=== PATIENT | male | born 1970 | race Caucasian/White ===

== ENCOUNTER 2017-10-30 01:36 | Emergency (ER) | payer SELFPAY ==
[~2017-10-30] VITALS: Ht 182.9 cm; Wt 75.0 kg
[2017-10-30 01:38] VITALS: BP 121/71; PULSE 73; RESP 18; TEMP 97.6; O2SAT 100
[2017-10-30] MEDS ORDERED: AMOX500T PO (02:11)
[2017-10-30] MEDS ORDERED: AMOXICILLIN (TRIHYDRATE) 500 MG CAP PO ONE (02:15)
[2017-10-30] MEDS ORDERED: ACETAMINOPHEN/HYDROcodone 325 MG/5 MG TAB PO ONE (02:15)
--- NOTE | 2017-10-30 02:16 | PD ---
HPI Chief Complaint: Oral / Dental Pain or Problem Time Seen by Provider: 01:46 Travel History International Travel<30 days: No Contact w/Intl Traveler<30days: No Traveled to known affect area: No History of Present Illness HPI 47-year-old white male presents emergency department with complaints of right lower jaw swelling and pain. Patient states his symptoms and present for the last 2 days. Moderate intensity. No alleviating factors. No exacerbating factors. Positive headache. PFSH Past Medical History Medical History: Denies Significant Hx Diminished Hearing: No Tetanus Vaccination: < 5 Years Past Surgical History Surgical History: No Previous Surgery Social History Alcohol Use: Yes (OCC) Tobacco Use: Yes (1PPD) Substance Use: Yes (MARIJUANA) Allergies-Medications (Allergen,Severity, Reaction): Coded Allergies: No Known Allergies (Unverified , 10/30/17) Reported Meds & Prescriptions Reported Meds & Active Scripts Active Amoxicillin 500 Mg Tab 500 Mg PO TID 10 Days Review of Systems Except as stated in HPI: all other systems reviewed are Neg General / Constitutional: No: Fever Eyes: No: Visual changes HENT: Positive: Headaches, Dental Difficulties, No: Sore Throat, Ear Discharge , Earache Cardiovascular: No: Chest Pain or Discomfort Respiratory: No: Shortness of Breath Gastrointestinal: No: Abdominal Pain Genitourinary: No: Dysuria Musculoskeletal: No: Pain Skin: No Rash Neurologic: Positive: Headache, No: Weakness Psychiatric: No: Depression Endocrine: No: Polydipsia Hematologic/Lymphatic: No: Easy Bruising Physical Exam Narrative GENERAL: Well-developed, well-nourished in no acute distress. Nontoxic appearing. HEAD: Normocephalic, atraumatic. EYES: Pupils equal round and reactive. Extraocular motions intact. No scleral icterus. No injection or drainage. ENT: TMs clear without erythema. The external auditory canals clear. Nose: clear . Posterior pharynx is pink and moist. No tonsillar edema or exudate. Uvula midline. Airway patent. Patient has a dental abscess in the right lower mandible. Patient has multiple, multiple dental caries of the gumline. Mild swelling along the right mandible NECK: Trachea midline.Supple, nontender, moves head freely. No central bony tenderness or spasm. CARDIOVASCULAR: Regular rate and rhythm without murmurs, gallops, or rubs. RESPIRATORY: Clear to auscultation. Breath sounds equal bilaterally. No wheezes , rales, or rhonchi. GASTROINTESTINAL: Abdomen soft, non-tender, nondistended. No hepato-splenomegaly , or palpable masses. No guarding. EXTREMITIES: No clubbing, cyanosis, or edema. No joint tenderness, effusion, or edema noted. BACK: Nontender without deformity or crepitance. No flank tenderness. Data Data Last Documented VS Vital Signs Date Time Temp Pulse Resp B/P (MAP) Pulse Ox O2 Delivery O2 Flow Rate FiO2 10/30/17 01:38 97.6 73 18 121/71 (88) 100 Orders Orders Ed Discharge Order (10/30/17 02:10) Amoxicillin (Trimox) (10/30/17 02:15) Acetamin-Hydrocod 325-5 Mg ([place] 5-325 (10/30/17 02:15) MDM Medical Decision Making Medical Screen Exam Complete: Yes Emergency Medical Condition: Yes Medical Record Reviewed: Yes Differential Diagnosis MDM: Moderate Differential diagnoses: Dental abscess, dental caries, osteitis, cellulitis Narrative Course Patient was given Amoxil 1 g p.o. and 1 [place] 5 mg p.o. This is dental abscess Diagnosis Primary Impression: Dental abscess Patient Instructions: Narcotic given in the ED, General Instructions Additional Instructions: Rest. Saltwater gargles. [place] oil on cotton balls. Rest. Saltwater gargles. [place] oil on cotton balls. 3 Advil every 6 hours. Amoxicillin follow-up with a dentist as soon as possible. And return to the ER if any problems. Med/Other Pt SpecificInfo: Prescription(s) given Scripts Amoxicillin (Amoxicillin) 500 Mg Tab 500 MG PO TID for Infection for 10 Days, TAB 0 Refills Prov: Jj Sierra MD 10/30/17 Disposition: 01 DISCHARGE HOME Condition: Stable Erik Arrieta Oct 30, 2017 02:16
== END 2017-10-30 02:15 | disposition home or self-care (01) ==
LOC: NEPD 01:36
DX: K04.7 Periapical abscess without sinus (principal); F17.200 Nicotine dependence, unspecified, uncomplicated
CPT/HCPCS: 99283

== ENCOUNTER 2017-11-13 02:13 | Emergency (ER) | payer SELFPAY ==
[~2017-11-13] VITALS: Ht 182.9 cm; Wt 80.0 kg
[~2017-11-13 02:13] MED LIST: AMOX500T PO
[2017-11-13 02:28] VITALS: BP 121/65; PULSE 79; RESP 18; TEMP 98.1; O2SAT 98
[2017-11-13] MEDS ORDERED: PERI0.126 SWISH-SPIT (04:21)
[2017-11-13] MEDS ORDERED: IBUP1TAB7 PO (04:21)
--- NOTE | 2017-11-13 04:24 | PD ---
HPI Chief Complaint: Oral / Dental Pain or Problem Time Seen by Provider: 04:20 Travel History International Travel<30 days: No Contact w/Intl Traveler<30days: No Traveled to known affect area: No History of Present Illness HPI 47-year-old male presents for evaluation of dental pain. Symptoms started weeks ago. Pain is an aching pain which is constant, localized the left mandibular second and third molars, worse when chewing. He was seen here for evaluation of this issue on October 30 and was prescribed a 10 day course of amoxicillin which he has just completed. He continues to have pain and this is what prompted evaluation. He says that he cannot afford to see a dentist. He has no other complaints at this time. [facility] Past Medical History Medical History: Denies Significant Hx Diminished Hearing: No Tetanus Vaccination: < 5 Years Influenza Vaccination: No Social History Alcohol Use: Yes (OCC) Tobacco Use: Yes (1PPD) Substance Use: Yes (MARIJUANA) Allergies-Medications (Allergen,Severity, Reaction): Coded Allergies: No Known Allergies (Unverified , 11/13/17) Reported Meds & Prescriptions Reported Meds & Active Scripts Active Ibuprofen 800 Mg Tab 800 Mg PO Q6HR PRN Peridex Liq (Chlorhexidine Gluconate (Mouth) Liq) 0.12% Soln 15 Ml SWISH-SPIT BID Amoxicillin 500 Mg Tab 500 Mg PO TID 10 Days Review of Systems General / Constitutional: No: Fever, Chills HENT: Positive: Dental Difficulties Physical Exam Narrative GENERAL: Well-developed well-nourished male in no acute distress SKIN: Warm and dry. HEAD: Atraumatic. Normocephalic. EYES: Pupils equal and round. No scleral icterus. No injection or drainage. ENT: No nasal bleeding or discharge. Mucous membranes pink and moist. Multiple areas of dental decay most of the patient's teeth, particularly in the left mandibular second and third molars. There is no gingival edema, no facial edema, no sublingual edema, no trismus NECK: Trachea midline. No JVD. No lymphadenopathy CARDIOVASCULAR: Regular rate and rhythm. No murmur appreciated. RESPIRATORY: No accessory muscle use. Clear to auscultation. Breath sounds equal bilaterally. Data Data Last Documented VS Vital Signs Date Time Temp Pulse Resp B/P (MAP) Pulse Ox O2 Delivery O2 Flow Rate FiO2 11/13/17 02:28 98.1 79 18 121/65 (73) 98 MDM Medical Decision Making Medical Screen Exam Complete: Yes Emergency Medical Condition: Yes Medical Record Reviewed: Yes Differential Diagnosis Dental caries, pulpitis, pericoronitis, periodontal abscess Narrative Course Ultimately this patient will require most of his teeth being removed by a dentist. At this point in time the plan is to discharge him a short course of ibuprofen and Peridex. Advised follow-up with a dentist for definitive treatment. Diagnosis Primary Impression: Dental caries Additional Instructions: Medication as prescribed. Follow-up with a dentist for definitive therapy. Return for any emergent medical conditions. Med/Other Pt SpecificInfo: Prescription(s) given Scripts Ibuprofen (Ibuprofen) 800 Mg Tab 800 MG PO Q6HR Y for PAIN, #40 TAB 0 Refills Prov: Anna Prieto MD 11/13/17 Chlorhexidine Gluconate (Mouth) Liq (Peridex Liq) 0.12% Soln 15 ML SWISH-SPIT BID, #473 ML 0 Refills Prov: Anna Prieto MD 11/13/17 Disposition: 01 DISCHARGE HOME Condition: Stable Victor Manuel Brenner Nov 13, 2017 04:24
== END 2017-11-13 04:58 | disposition home or self-care (01) ==
LOC: NEPD 02:13
DX: K02.9 Dental caries, unspecified (principal); F17.200 Nicotine dependence, unspecified, uncomplicated; F12.90 Cannabis use, unspecified, uncomplicated
CPT/HCPCS: 99283